=== PATIENT | female | born 1955 | race Caucasian/White ===

== ENCOUNTER → 2022-12-14 13:12 | Outpatient (CLI) | payer OTHER, SELFPAY ==
[2022-12-14 15:31] LABS: Blood Urea Nitrogen 13 mg/dl (7-17); Estimated Glomerular Filt Rate 100 ml/min (>60); GFR (African American) 121 ML/MIN (>60); Glucose 108 mg/dl (74-100); Sodium 122 mmol/L (136-145)
[2022-12-14 16:59] LABS: Carbon Dioxide 40 mmol/L (22.0-30.0)
[2022-12-14 17:13] LABS: Chloride 70 mmol/L (98-107)
== END ==
PROVIDERS: PCP Family Medicine Hospice and Palliative Medicine; Visit Provider Family Medicine Hospice and Palliative Medicine
DX: I50.84 End stage heart failure (principal)
CPT/HCPCS: 80048

== ENCOUNTER 2022-12-19 19:07 | Emergency (ER) | payer OTHER, SELFPAY ==
[2022-12-19 19:01] VITALS: BP 123/31; PULSE 81; RESP 18; TEMP 36.7; O2SAT 100; BMI 37.5
--- NOTE | 2022-12-19 19:15 | XR_ITS ---
PROCEDURE INFORMATION: Exam: XR Chest Exam date and time: 12/19/2022 7:25 PM Age: 67 years old Clinical indication: Other: Edema TECHNIQUE: Imaging protocol: Radiologic exam of the chest. Views: 1 view. COMPARISON: No relevant prior studies available. FINDINGS: Lungs: Bilateral perihilar interstitial and patchy opacities. No consolidation. Pleural spaces: Left apical pleural thickening. Bilateral pleural effusions. No pneumothorax. Heart/Mediastinum: Cardiomegaly. Bones/joints: Chronic appearing deformities of the bilateral glenohumeral joints. IMPRESSION: 1. Bilateral perihilar interstitial and patchy opacities likely representing pulmonary edema. 2. Bilateral pleural effusions. 3. Cardiomegaly.
--- NOTE | 2022-12-19 19:18 | PC.NURSE ---
Call [facility] for to speak to someone over the pt, stated they would page someone and should receive a call back within 50 minutes if no one has called to call the again
[2022-12-19 19:30] VITALS: BP 122/58; PULSE 82; O2SAT 98
--- NOTE | 2022-12-19 19:47 | ECG_ITS ---
APPROVED REPORT Exam: Resting ECG HR:82 bpm ECG Measurements Heart Rate 82 AXES QRSd 92 QRS 253 QT 288 T 153 QTc 326 Conclusion SUPRAVENTRICULAR RHYTHM POSSIBLE RIGHT VENTRICULAR HYPERTROPHY [SOME/ALL OF: PROMINENT R IN V1, LATE TRANSITION, RAD, EBONY, SSS] INFERIOR MYOCARDIAL INFARCTION , PROBABLY OLD [40+ ms Q WAVE AND/OR ST/T ABNORMALITY IN II/aVF] ANTEROSEPTAL MYOCARDIAL INFARCTION , PROBABLY OLD [40+ ms Q WAVE IN V1-V4] ABNORMAL ECG UNCONFIRMED REPORT Electronically signed by : Raul Kang MD 12/20/2022 08:38:28
--- NOTE | 2022-12-19 19:53 | PC.NURSE ---
Alesha from Hospice returned call and on phone with Dr. Rossy Alves at this time
--- NOTE | 2022-12-19 20:07 | [facility].EDGENADL ---
Discharge Plan Disposition Patient Disposition: Hospice - Home Condition: Fair Prescriptions Prescriptions: New furosemide [Lasix] 40 mg tablet 40 mg PO BID Qty: 60 0RF Referrals Follow up/Referrals: Provider,Referral, MD [Primary Care Provider] - See instructions Activity Restrictions/Add. Instructions Additional Instructions/Restrictions: You were evaluated in the ER for swelling. We are increasing your lasix to twice a day. Please continue with hospice care at home. Clinical Impressions Clinical Impression: CHF exacerbation, Anasarca, Hospice care patient Instructions Patient Instructions: Heart Failure Discharge ED Provider: Mely Alves General Adult HPI General Chief complaint: Shortness of Breath/Dyspnea Stated complaint: Swelling Time Seen by Provider: 12/19/22 19:09 Mode of Arrival: EMS Source of Information: Patient Limitations: No Limitations Description of Symptoms (Recalled from ER Triage Doc. by RN): Patient reports increased swelling in bilateral legs and arms. States that she has had some seaping from her legs as well. Complaint of increased pain in bilateral legs. Patient is a Hospice patient for CHF. History of Present Illness HPI narrative: This patient is a 67-year-old female with a history of congestive heart failure and chronic respiratory failure currently on hospice presenting to the emergency department with concerns for worsening generalized edema. She notes that she is on Lasix, but the edema continues to worsen. She states that it is bothering her because it makes it difficult to lie on her side because her legs are so swollen. No other concerns noted at this time, such as chest pain, shortness of breath, or other issues. Per her family, she is currently at home with them on hospice. They have been giving her her medications at home. They called EMS to have her brought in today because she kept getting agitated and upset with them regarding her edema. EMS notes that the patient was stable in no acute distress in route. Related Data Previous Rx's Medication Instructions Recorded furosemide 40 mg tablet (Lasix) 40 mg PO BID #60 tabs 12/19/22 Allergies Allergy/AdvReac Type Severity Reaction Status Date / Time acetaminophen Allergy Verified 12/19/22 19:14 [From Tylenol-Codeine #3] codeine Allergy Verified 12/19/22 19:14 [From Tylenol-Codeine #3] [facility] Disclaimer: The information contained in this section may have been updated after the patient was seen, as this information can be updated by other users. Social History Smoking Status: Never smoker alcohol intake: never current occupational status: retired Travel in the last 8 weeks: None ROS Obtained: Yes All systems reviewed & no additional complaints except as documented Physical Exam General General appearance: alert, in no apparent distress and obese Head Head exam: atraumatic and normocephalic Eye Eye exam: Present normal appearance, PERRL and EOMI ENT ENT exam: Present normal exam, normal oropharynx, mucous membranes moist and normal external ear exam Neck Neck exam: Present normal inspection, full ROM and trachea midline; Absent tenderness Chest Chest inspection: Present normal inspection and symmetric chest wall rise; Absent tenderness Respiratory Respiratory exam: Present normal lung sounds bilaterally; Absent respiratory distress, wheezes, stridor or accessory muscle use Cardiovascular Cardiovascular exam: Present regular rate and normal rhythm Abdominal Exam Abdominal exam: Present soft; Absent distention, tenderness or guarding Extremities Exam Extremities exam: Present full ROM, normal capillary refill and edema (Anasarca noted with generalized edema, left side greater than right side); Absent tenderness Back Exam Back exam: Present normal inspection and full ROM; Absent tenderness Neurological Exam Neurological ex
--- NOTE | 2022-12-19 20:17 | PC.NURSE ---
Hospice nurse in room with pt. and family
[2022-12-19 22:00] VITALS: BP 153/74; PULSE 81; RESP 20; O2SAT 100
[2022-12-19 22:31] VITALS: BP 129/63; PULSE 78; RESP 18; O2SAT 100
--- NOTE | 2022-12-19 22:57 | PC.NURSE ---
provided patient a blanket and remote for the television.
[2022-12-19 23:01] VITALS: BP 164/66; PULSE 78; RESP 18; O2SAT 100
[2022-12-19 23:52] VITALS: BP 164/66; PULSE 78; RESP 18; TEMP 36.7; O2SAT 100
== END 2022-12-19 23:54 | disposition hospice, home (50) ==
PROVIDERS: Emergency Provider Emergency Medicine
DX: R60.0 Localized edema (principal); I50.21 Acute systolic (congestive) heart failure
CPT/HCPCS: 71045; 93005; 96372; 99284; 99285